=== PATIENT | female | born 1970 | race Two or more races ===

== ENCOUNTER 2017-12-10 16:49 | Emergency (ER) | payer OTHER ==
[~2017-12-10] VITALS: Ht 160 cm; Wt 89.4 kg
[2017-12-10 16:57] VITALS: BP 142/90
[2017-12-10] MEDS ORDERED: KETOROLAC TROMETHAMINE INJ 30 MG/ML VIAL ONE (17:39)
[2017-12-10] MEDS ORDERED: KETOROLAC TROMETHAMINE INJ 60 MG/2 ML VIAL IM ONE (18:00)
== END 2017-12-10 17:49 | disposition home or self-care (01) ==
LOC: ER 16:53
DX: G89.29 Other chronic pain (principal); M79.7 Fibromyalgia; E11.9 Type 2 diabetes mellitus without complications; I10 Essential (primary) hypertension; J45.909 Unspecified asthma, uncomplicated; Z98.890 Other specified postprocedural states
CPT/HCPCS: 96372; 99283; A4606; J1885; Z7610